=== PATIENT | female | born 1970 | race Caucasian/White ===

== ENCOUNTER 2018-10-07 19:26 | Outpatient (REF) | payer BC, SELFPAY | END 2018-10-07 19:46 | LOC: NCHCN 19:26 | PROVIDERS: PCP Internal Medicine; Visit Provider Physician Assistant Medical | DX: N39.0 Urinary tract infection, site not specified (principal) | CPT/HCPCS: 87077; 87086; 87186 ==

== ENCOUNTER 2019-07-01 17:28 | Outpatient (REF) | payer BC, SELFPAY ==
[2019-07-01 19:05] LABS: HCT 37.9 % (36.0-46.0); HGB 12.4 g/dL (12.0-15.5); Mean Corp. HGB Concentration 32.7 g/dL (32.0-36.0); Mean Corpuscular Hemoglobin 31.2 pg (27.0-33.0); Mean Corpuscular Volume 95.5 fL (80-95); Mean Platelet Volume 9.6 fL (8.0-11.0); Platelet Count 331 x1000/uL (130-400); RBC 3.97 m/cumm (4.00-5.20); White Blood Cell Count 7.67 k/cumm (4.4-10.8)
[2019-07-04 13:06] LABS: Lyme Ab w Rflx to Lyme Confirm Negative
== END 2019-07-01 17:48 ==
LOC: NCHCN 17:28
PROVIDERS: PCP Internal Medicine; Visit Provider Internal Medicine
DX: R21 Rash and other nonspecific skin eruption (principal)
CPT/HCPCS: 85027; 86618

== ENCOUNTER 2019-09-29 14:06 | Outpatient (CLI) | payer BC, SELFPAY ==
[2019-09-29 15:19] LABS: Hemoglobin A1C 5.4 % (4.5-6.2)
[2019-09-29 15:28] LABS: TSH (W/Ref FT4) 2.49 uIU/mL (0.36-3.74)
[2019-09-29 15:43] LABS: Vitamin D 25 Total 29.5 ng/ml (30-100)
== END 2019-09-29 14:26 ==
PROVIDERS: PCP Internal Medicine; Visit Provider Psychiatry & Neurology Neurology
DX: R53.83 Other fatigue (principal); R20.2 Paresthesia of skin; R73.9 Hyperglycemia, unspecified
CPT/HCPCS: 36415; 82306; 83036; 84443

== ENCOUNTER 2020-10-29 20:21 | Outpatient (REF) | payer BC, SELFPAY | END 2020-10-29 20:41 | LOC: NCHCN 20:21 | PROVIDERS: PCP Internal Medicine; Visit Provider Internal Medicine | DX: N30.00 Acute cystitis without hematuria (principal); N32.81 Overactive bladder | CPT/HCPCS: 87086 ==

== ENCOUNTER 2021-01-31 16:11 | Outpatient (REF) | payer BC, SELFPAY ==
[2021-02-01 13:06] LABS: COVID-19 RT-PCR UVMMC Result Negative (Negative)
== END 2021-01-31 16:12 | disposition home or self-care (01) ==
LOC: NCHCN 16:11
PROVIDERS: PCP Internal Medicine; Visit Provider Physician Assistant
DX: Z20.822 Contact with and (suspected) exposure to COVID-19 (principal)
CPT/HCPCS: U0003

== ENCOUNTER 2021-05-24 11:54 | Outpatient (REF) | payer BC, SELFPAY ==
[2021-05-24 19:22] LABS: HCT 38.6 % (36.0-46.0); HGB 12.5 g/dL (11.2-15.7); MCH 31.5 pg (27.0-33.0); MCHC 32.4 % (32.0-36.0); MCV 97.2 fL (80-95); MPV 10.1 fL (8.0-11.0); Platelet Count 314 10^3/uL (130-400); RBC 3.97 10^6/uL (3.93-5.22); RDW 12.5 % (11.7-14.6); RDW-SD 44.9 fL; WBC 6.41 10^3/uL (4.4-10.8)
[2021-05-24 19:31] LABS: ALT 21 U/L (14-59); AST 16 U/L (15-37); Albumin 3.9 g/dL (3.4-5.0); Alkaline Phosphatase 58 U/L (46-116); Anion Gap 9.8 mmol/L (3-11); BUN 14 mg/dL (7-18); Bilirubin, Total 0.3 mg/dL (0.2-1.0); CO2 26.2 mmol/L (21.0-32.0); CREATININE 0.9 mg/dL (0.55-1.02); Calcium 8.8 mg/dL (8.5-10.1); Calculated LDL 105 mg/dL (<100); Chloride 106 mmol/L (98-107); Cholesterol 174 mg/dL (<200); Glucose 83 mg/dL (74-106); HDL Cholesterol 59 mg/dL (40-60); Potassium 4.1 mmol/L (3.5-5.1); Sodium 142 mmol/L (136-145); TSH (W/Ref FT4) 1.32 uIU/mL (0.36-3.74); Total Protein 7.1 g/dL (6.4-8.2); Triglyceride 52 mg/dL (<150)
[2021-05-24 19:48] LABS: Hemoglobin A1C 5.5 % (<5.7)
== END 2021-05-24 11:55 | disposition home or self-care (01) ==
LOC: NCHCN 11:54
PROVIDERS: PCP Internal Medicine; Visit Provider Physician Assistant
DX: Z00.00 Encounter for general adult medical examination without abnormal findings (principal); Z13.220 Encounter for screening for lipoid disorders; Z13.1 Encounter for screening for diabetes mellitus; N92.0 Excessive and frequent menstruation with regular cycle; Z83.49 Family history of other endocrine, nutritional and metabolic diseases
CPT/HCPCS: 80053; 80061; 85027; 83036; 84443

== ENCOUNTER 2021-12-02 16:02 | Outpatient (REF) | payer BC, SELFPAY ==
[2021-12-02 20:06] LABS: D-Dimer 585 ng/mlFEU (<500)
== END 2021-12-02 16:03 | disposition home or self-care (01) ==
LOC: NCHCN 16:02
PROVIDERS: PCP Internal Medicine; Visit Provider Nurse Practitioner Family
DX: R06.09 Other forms of dyspnea (principal); R07.89 Other chest pain
CPT/HCPCS: 85379

== ENCOUNTER 2021-12-19 16:43 | Outpatient (REF) | payer BC, SELFPAY ==
[2021-12-19 19:43] LABS: D-Dimer 358 ng/mlFEU (<500)
== END 2021-12-19 16:44 | disposition home or self-care (01) ==
LOC: LBN 16:43
PROVIDERS: PCP Internal Medicine; Visit Provider Obstetrics & Gynecology
DX: Z91.89 Other specified personal risk factors, not elsewhere classified (principal)
CPT/HCPCS: 85379

== ENCOUNTER 2022-12-02 16:11 | Outpatient (REF) | payer BC, SELFPAY | END 2022-12-02 16:12 | disposition home or self-care (01) | LOC: NCHCN 16:11 | PROVIDERS: PCP Internal Medicine; Visit Provider Physician Assistant | DX: R35.0 Frequency of micturition (principal) | CPT/HCPCS: 87086; 87480; 87510; 87660 ==

== ENCOUNTER 2023-11-17 11:31 | Outpatient (REF) | payer BC, SELFPAY ==
[2023-11-17 21:30] LABS: Hemoglobin A1C 5.5 % (<5.7)
[2023-11-17 23:34] LABS: ALT 34 U/L (14-59); AST 21 U/L (15-37); Albumin 3.7 g/dL (3.4-5.0); Alkaline Phosphatase 72 U/L (46-116); Anion Gap 10.6 mmol/L (3-11); BUN 16 mg/dL (7-18); Bilirubin, Total 0.5 mg/dL (0.2-1.0); CO2 24.4 mmol/L (21.0-32.0); CREATININE 0.8 mg/dL (0.55-1.02); Chloride 104 mmol/L (98-107); Glucose 93 mg/dL (74-106); Sodium 139 mmol/L (136-145); Total Protein 7.4 g/dL (6.4-8.2)
[2023-11-18 14:00] LABS: Calculated LDL 103 mg/dL (<100); Cholesterol 185 mg/dL (<200); HDL Cholesterol 71 mg/dL (40-60); Triglyceride 56 mg/dL (<150)
[2023-11-18 18:48] LABS: HIV-1/2 Ag & Ab Screen Negative (Negative)
[2023-11-18 19:21] LABS: Hepatitis C Ab w Rflx HCV PCR Negative (Negative)
== END 2023-11-17 11:32 | disposition home or self-care (01) ==
LOC: NCHCN 11:31
PROVIDERS: PCP Internal Medicine; Visit Provider Physician Assistant
DX: Z00.00 Encounter for general adult medical examination without abnormal findings (principal)
CPT/HCPCS: 80053; 80061; 86803; 87389; 83036